=== PATIENT | female | born 1985 | race Caucasian/White ===

== ENCOUNTER 2021-08-11 13:09 | Emergency (ER) | payer OTHER ==
[~2021-08-11] VITALS: Ht 172.7 cm; Wt 84.4 kg
[~2021-08-11 13:09] MED LIST: LAMICTAL200 MG PO
[2021-08-11] MEDS ORDERED: CARBAMAZEPINE200 M2 PO (14:06)
[2021-08-11] MEDS ORDERED: HYDROCODON-ACE1 EA10 PO (16:37)
== END 2021-08-11 16:46 | disposition home or self-care (01) ==
LOC: ED 13:09
DX: S16.1XXA Strain of muscle, fascia and tendon at neck level, initial encounter (principal); S20.211A Contusion of right front wall of thorax, initial encounter; G40.909 Epilepsy, unspecified, not intractable, without status epilepticus; Z79.899 Other long term (current) drug therapy; V89.2XXA Person injured in unspecified motor-vehicle accident, traffic, initial encounter
CPT/HCPCS: 36415; 70450; 71101; 72125; 80156; 99284-25

== ENCOUNTER 2022-07-21 21:56 | Emergency (ER) | payer MEDICAID ==
[~2022-07-21] VITALS: Ht 172.7 cm; Wt 86.6 kg
[~2022-07-21 21:56] MED LIST changes: +CARBAMAZEPINE200 M2 PO; +HYDROCODON-ACE1 EA10 PO
== END 2022-07-21 22:59 | disposition home or self-care (01) ==
LOC: ED 21:56
PROC: 0HQGXZZ Repair Left Hand Skin, External Approach (ICD-10-PCS; principal; 2022-07-21)
DX: S61.211A Laceration without foreign body of left index finger without damage to nail, initial encounter (principal); G40.909 Epilepsy, unspecified, not intractable, without status epilepticus; Z23 Encounter for immunization; Z79.899 Other long term (current) drug therapy; W27.8XXA Contact with other nonpowered hand tool, initial encounter
CPT/HCPCS: 12002; 73140; 90471; 90715; 99283-25